=== PATIENT | female | born 1980 | race Caucasian/White ===

== ENCOUNTER 2022-07-27 08:30 | Outpatient (CLI) | payer OTHER, SELFPAY ==
[2022-07-27 13:43] LABS: Chloride* 107 mmol/L (96-114); Potassium* 4.3 mmol/L (3.6-5.1); Sodium* 140 mmol/L (135-149)
[2022-07-27 13:46] LABS: Blood Urea Nitrogen* 12 mg/dL (5-24); Carbon Dioxide* 28 mmol/L (20-32); Cholesterol* 150 mg/dL (90-199); Creatinine* 0.7 mg/dL (0.5-1.5); Estimated Glomerular Filt Rate 109 ml/min; Glucose* 97 mg/dL (60-115)
[2022-07-27 13:47] LABS: Calcium* 9.5 mg/dL (8.4-10.6); HDL Cholesterol* 91 mg/dL (>=50); LDL Cholesterol Calculated 54 mg/dL (<100); Triglycerides* 24 mg/dL (40-149)
[2022-07-27 15:13] LABS: Vitamin D 25 Hydroxy* 120 ng/mL (30-80)
== END 2022-07-27 08:31 | disposition home or self-care (01) ==
PROVIDERS: PCP Physician Assistant Medical; Visit Provider Physician Assistant Medical
DX: Z00.00 Encounter for general adult medical examination without abnormal findings (principal); E55.9 Vitamin D deficiency, unspecified; E07.9 Disorder of thyroid, unspecified
CPT/HCPCS: 80048; 80061; 82306

== ENCOUNTER 2023-04-23 06:18 | Outpatient (CLI) | payer OTHER, SELFPAY ==
--- NOTE | 2023-04-23 08:14 | W.ANESCHARGE ---
Anesthesia Charges Start Date/Time Anesthesia Start Date: 04/23/23 Anesthesia Start Time: 07:46 Stop Date/Time Anesthesia Stop Date: 04/23/23 Anesthesia Stop Time: 08:10
--- NOTE | 2023-04-23 09:04 | W.ANESCHARGE ---
Anesthesia Charges Start Date/Time Anesthesia Start Date: 04/23/23 Anesthesia Start Time: 07:46 Stop Date/Time Anesthesia Stop Date: 04/23/23 Anesthesia Stop Time: 08:10
--- NOTE | 2023-04-23 09:09 | W.ANESCHARGE ---
Anesthesia Charges Start Date/Time Anesthesia Start Date: 04/23/23 Anesthesia Start Time: 07:16 Stop Date/Time Anesthesia Stop Date: 04/23/23 Anesthesia Stop Time: 07:39
--- NOTE | 2023-04-23 09:36 | W.ANESCHARGE ---
Anesthesia Charges Start Date/Time Anesthesia Start Date: 04/23/23 Anesthesia Start Time: 07:16 Stop Date/Time Anesthesia Stop Date: 04/23/23 Anesthesia Stop Time: 07:39
== END 2023-04-23 06:19 | disposition home or self-care (01) ==
LOC: OP CLINIC 06:18
PROVIDERS: PCP Physician Assistant Medical; Visit Provider Internal Medicine
DX: Z12.11 Encounter for screening for malignant neoplasm of colon (principal); K64.8 Other hemorrhoids
CPT/HCPCS: 00811; 00812; 45378; J2704

== ENCOUNTER 2023-04-27 14:46 | Outpatient (CLI) | payer OTHER, SELFPAY ==
--- NOTE | 2023-04-27 15:00 | CRLHL7_ITS ---
For Patients: As a result of the Century Cures Act, medical imaging exams and procedure reports are released immediately into your electronic medical record. You may view this report before your referring provider. If you have questions, please contact your health care provider. INDICATION: Tongue deviation TECHNIQUE: Non-contrast sagittal T1, axial FLAIR, FSE T2, DWI, posterior fossa CISS images provided. Supplemental post contrast T1 weighted axial and coronal high resolution images through the posterior fossa with fat saturation and post contrast whole head axial T1 weighted images submitted. No comparisons. 15 cc of dotarem gadolinium was administered intravenously. FINDINGS: The ventricles, sulci and gyri are of normal size, shape and contour for age. Midline structures are centrally located. No convincing evidence of suspicious intra- or extra-axial fluid collections. No regions of restricted diffusion. Expected flow-voids within the cavernous carotids and basilar artery. No suspicious masses within the internal auditory canals. No suspicious regions of abnormal parenchymal enhancement. The cisternal segments of the trigeminal nerves appear within normal limits. IMPRESSION: 1. No radiographic evidence of acute intracranial abnormalities. Dictated by Tom Vidales MD @ 04/27/2023 6:53:28 PM (Electronically Signed)
== END 2023-04-27 14:47 | disposition home or self-care (01) ==
LOC: MRI 14:46
PROVIDERS: PCP Physician Assistant Medical; Visit Provider Physician Assistant Medical
DX: K14.8 Other diseases of tongue (principal)
CPT/HCPCS: 70553; A9575

== ENCOUNTER 2024-09-26 14:20 | Outpatient (CLI) | payer OTHER, SELFPAY | END 2024-09-26 14:21 | disposition home or self-care (01) | LOC: NFLDREF 09-27 02:46 | PROVIDERS: PCP Physician Assistant Medical; Referring Provider Physician Assistant Medical | DX: Z76.89 Persons encountering health services in other specified circumstances (principal) | CPT/HCPCS: 99001 ==